=== PATIENT | male | born 1970 | race African-American/Black ===

== ENCOUNTER 2020-08-18 12:00 | Emergency (ER) | payer OTHER ==
[~2020-08-18] VITALS: Ht 167.6 cm; Wt 58.0 kg
[2020-08-18 12:09] VITALS: BP 112/65
== END 2020-08-18 13:15 | disposition home or self-care (01) ==
LOC: ER 12:21
DX: M54.32 Sciatica, left side (principal); R03.0 Elevated blood-pressure reading, without diagnosis of hypertension
CPT/HCPCS: 99283

== ENCOUNTER 2025-02-09 09:58 | Emergency (ER) | payer MEDICAID, OTHER ==
[~2025-02-09] VITALS: Ht 165.1 cm; Wt 60.0 kg
[2025-02-09 10:03] VITALS: O2SAT 98
[2025-02-09 10:46] VITALS: BP 125/72; PULSE 82; RESP 14; TEMP 37.2; O2SAT 99
[2025-02-09 12:03] LABS: BASOPHILS % 0.2 % (0.0-2.0); EOSINOPHILS % 0.1 % (0.0-5.0); HEMATOCRIT. 41.4 % (42.0-52.0); HEMOGLOBIN. 13.8 g/dL (14.0-18.0); MEAN CORPUSCULAR HEMOGLOBIN 28.7 pg (28.0-32.0); MEAN CORPUSCULAR HGB CONC 33.4 g/dL (31.0-37.0); MEAN CORPUSCULAR VOLUME 86.1 fL (80.0-94.0); MEAN PLATELET VOLUME 8.2 fl (7.4-10.4); MONOCYTES % 9.5 % (2.0-8.0); NEUTROPHILS % 78.2 % (40.0-76.0); PLATELET 286 x1000/uL (130-400); RED BLOOD CELL COUNT 4.81 mill/uL (4.7-6.1); RED CELL DISTRIBUTION WIDTH 14.7 % (11.6-14.6)
[2025-02-09 12:13] LABS: CARBON DIOXIDE 29 mEq/L (21-32); CHLORIDE 86 mEq/L (98-107); POTASSIUM 3.4 mEq/L (3.5-5.1); SODIUM 125 mEq/L (136-145)
[2025-02-09 12:14] LABS: CALCIUM 8.8 mg/dL (8.7-10.4)
[2025-02-09 12:19] LABS: CREATININE 1.1 mg/dL (0.6-1.3); GLUCOSE 97 mg/dL (70-105); UREA NITROGEN BLOOD 13 mg/dL (9-23)
[2025-02-09] MEDS ORDERED: AMOX50SU15 MT (12:55)
[2025-02-09 12:58] LABS: INR 1.2; PROTHROMBIN TIME 12.4 sec (9.6-11.0)
[2025-02-09 13:30] LABS: CLARITY URINE CLEAR (CLEAR); COLOR URINE YELLOW (YELLOW); GLUCOSE URINE NEGATIVE (NEGATIVE); KETONES URINE TRACE (NEGATIVE); LEUKOCYTE ESTERASE URINE NEGATIVE (NEGATIVE); NITRITE URINE NEGATIVE (NEGATIVE); OCCULT BLOOD URINE 2+ (NEGATIVE); PROTEIN URINE 2+ (NEGATIVE); SPECIFIC GRAVITY URINE 1.013 (1.005-1.030)
[2025-02-09 14:05] LABS: BACTERIA URINE FEW; RBC URINE 0-2 /hpf (0-2); SQUAMOUS EPITHELIAL CELL URINE NONE SEEN /lpf (RARE/1+); YEAST URINE NONE SEEN
== END 2025-02-09 13:20 | disposition home or self-care (01) ==
LOC: ER 09:58
DX: J11.1 Influenza due to unidentified influenza virus with other respiratory manifestations (principal); E87.1 Hypo-osmolality and hyponatremia
CPT/HCPCS: 36415; 71045; 80048; 81003; 85025; 99284